=== PATIENT | male | born 1950 | race Caucasian/White ===

== ENCOUNTER → 2018-06-07 | Outpatient (CLI) | payer OTHER | LOC: FIMAGING 17:34 | PROVIDERS: ATTEND Psychiatry & Neurology Neurology | DX: R51 Headache (principal); G31.9 Degenerative disease of nervous system, unspecified; R90.82 White matter disease, unspecified ==

== ENCOUNTER → 2018-10-15 | Outpatient (CLI) | payer OTHER | LOC: BMCIMAGING 08:40 | PROVIDERS: ATTEND Physician Assistant | DX: M25.551 Pain in right hip (principal); M25.552 Pain in left hip; M16.11 Unilateral primary osteoarthritis, right hip; Z96.642 Presence of left artificial hip joint ==